=== PATIENT | male | born 1995 | race Caucasian/White ===

== ENCOUNTER 2017-06-21 16:15 | Emergency (ER) | payer MEDICAID ==
--- NOTE | 2017-06-21 16:22 | CPEKG ---
Heart Rate: 69 RR Interval: 870 P-R Interval: 164 QRSD Interval: 90 QT Interval: 396 QTC Interval: 425 P [place]: 82 QRS [place]: 75 T Wave [place]: 80 EKG Severity - NORMAL ECG - EKG Impression: SINUS RHYTHM Electronically Signed By: Sandoval Hernandez 22-Jun-2017 12:55:35
[2017-06-21 16:28] VITALS: TEMP 97.3
[2017-06-21] MEDS ORDERED: NS 500 ML IV ONE (16:28)
--- NOTE | 2017-06-21 16:34 | EDPHY ---
H & P Time Seen by Provider: 06/21/17 16:19 HPI/ROS: CHIEF COMPLAINT: Sharp chest pain HISTORY OF PRESENT ILLNESS: This is a 21-year-old male presents emergency department reporting that half an hour ago he developed a sudden onset of sharp chest discomfort, substernal. Pain was worse with DB took a deep breath took short shallow breaths. He has not had this discomfort before. He was smoking marijuana at the time. No radiation of the pain. No nausea. No diaphoresis. No lightheadedness. No palpitations. Has not had similar symptoms previously. Reports being otherwise well. Patient has no coronary artery disease risk factors; no diabetes, high blood pressure, cigarette use, cocaine use, advanced age, or family history. No risk factors for venous thromboemboli: Denies recent long trips or immobilization, cancer history, peripheral swelling, family history of clotting disorders. Denies GERD, ulcer disease, pancreatitis, alcohol use, or liver disease No fever, chills, palpitations, vomiting, diarrhea, urinary complaints, headache , lightheadedness. REVIEW OF SYSTEMS: Aside from elements discussed in the HPI, a comprehensive 10-point review of systems was reviewed and is negative. PAST MEDICAL HISTORY: Seasonal allergies. SOCIAL HISTORY: Daily marijuana user. Denies methamphetamines, cocaine, opiates. VITAL SIGNS: see nurse's notes. GENERAL: Well-developed, well-nourished, in mild discomfort. Patient rates the discomfort as 8-9 /10. HEENT: Atraumatic. Eyes: No injection or icterus. Oropharynx: No erythema , no injection, no swelling. Neck: No JVD, no bruits, supple with no adenopathy. CHEST: No crepitus. Patient indicates an area of reproducible discomfort on the left sternal border. No rash. LUNGS: Clear to auscultation bilaterally, no wheezes, rhonchi or rales. CARDIAC: Regular rate and rhythm, no murmurs, no rubs, no gallops. ABDOMEN: Soft, no epigastric tenderness. Nondistended. Normal bowel sounds. BACK: No CVA tenderness. EXTREMITIES: No trauma. No clubbing, cyanosis or edema. Range of motion is normal throughout. NEURO: Alert and oriented , grossly nonfocal. SKIN: No diaphoresis, warm and dry, no rash. Smoking Status: Never smoked Constitutional: Initial Vital Signs Temperature (C) 36.3 C 06/21/17 16:21 Heart Rate 71 06/21/17 16:21 Respiratory Rate 16 06/21/17 16:21 Blood Pressure 134/80 H 06/21/17 16:21 O2 Sat (%) 99 06/21/17 16:21 O2 Delivery Mode Room Air Allergies/Adverse Reactions: No Known Allergies Allergy (Verified 06/21/17 16:20) Home Medications: Medication Instructions Recorded NK [No Known Home Meds] 06/21/17 Medical Decision Making - Diagnostics EKG Interpretation: 12-LEAD EKG: Please see the full report in [facility]. My interpretation: Normal sinus rhythm, no ST or T-wave changes. No signs of pericarditis. Imaging Results: Imaging Impressions Chest X-Ray 06/21/17 16:28 Impression: Clear lungs. No acute process. ED Course/Re-evaluation: 21-year-old male with sharp chest pain which started after he was smoking marijuana. Chest x-ray is normal. No pneumomediastinum. No pneumothorax. Examination is reassuring. Patient does have some mild tenderness to palpation along the left sternal border. Patient received a GI cocktail with minimal change in his symptoms. He received Toradol 30 mg IV followed by Dilaudid 0.5 mg. He continues to look quite well in the emergency department. He does not appear to be in any acute discomfort. I held a long discussion with the patient as well as with his parents regarding the etiology of the patient's pain. I do not suspect this is acute coronary syndrome. He has no risk factors and does not use illicit drugs which would predispose him to acute coronary syndrome. He is not diaphoretic, short of breath, or uncomfortable appearing. I doubt the patient has pulmonary embolism, D-dimer is negative. I suspect that this may be related to either esophageal spasm, or perhaps musculoskeletal discomfort from Valsalva maneuver and marijuana use. Patient was encouraged to use ibuprofen on a regular basis, and follow up with his primary care physician for further evaluation of his symptoms were to continue. He should return to urgency department if he develops a fever, ongoing pain, lightheadedness, palpitations, dizziness, fainting, diaphoresis, other concerns. Differential Diagnosis: After history and physical examination, the differential for chest pain was considered, including but not limited to, myocardial ischemia, acute coronary syndrome, pulmonary embolus, chest wall pain, pneumomediastinum, pneumothorax, GI source, reflux, pleural inflammation and pulmonary infectious causes. - Data Points Laboratory Results: Laboratory Results 06/21/17 16:33 06/21/17 16:33 06/21/17 06/21/17 06/21/17 16:33 16:33 16:33 WBC 6.84 10^3/uL 10^3/uL (3.80-9.50) RBC 5.09 10^6/uL 10^6/uL (4.40-6.38) Hgb 15.2 g/dL g/dL (13.7-17.5) Hct 43.1 % % (40.0-51.0) MCV 84.7 fL fL (81.5-99.8) MCH 29.9 pg pg (27.9-34.1) MCHC 35.3 g/dL g/dL (32.4-36.7) RDW 12.1 % % (11.5-15.2) Plt Count 246 10^3/uL 10^3/uL (150-400) MPV 10.0 fL fL (8.7-11.7) Neut % (Auto) 44.0 % % (39.3-74.2) Lymph % (Auto) 45.9 % H % (15.0-45.0) [place] % (Auto) 7.5 % % (4.5-13.0) Eos % (Auto) 1.8 % % (0.6-7.6) Baso % (Auto) 0.7 % % (0.3-1.7) Nucleat RBC Rel Count 0.0 % % (0.0-0.2) Absolute Neuts (auto) 3.01 10^3/uL 10^3/uL (1.70-6.50) Absolute Lymphs (auto) 3.14 10^3/uL H 10^3/uL (1.00-3.00) Absolute Monos (auto) 0.51 10^3/uL 10^3/uL (0.30-0.80) Absolute Eos (auto) 0.12 10^3/uL 10^3/uL (0.03-0.40) Absolute Basos (auto) 0.05 10^3/uL 10^3/uL (0.02-0.10) Absolute Nucleated RBC 0.00 10^3/uL 10^3/uL (0-0.01) Immature Gran % 0.1 % % (0.0-1.1) Immature Gran # 0.01 10^3/uL 10^3/uL (0.00-0.10) D-Dimer < 0.27 ug/mLFEU ug/mLFEU (0.00-0.50) Sodium 144 mEq/L mEq/L (134-144) Potassium 4.0 mEq/L mEq/L (3.5-5.2) Chloride 103 mEq/L mEq/L (97-110) Carbon Dioxide 27 mEq/l mEq/l (22-31) Anion Gap 14 mEq/L mEq/L (8-16) BUN 9 mg/dL mg/dL (7-23) Creatinine 0.9 mg/dL mg/dL (0.7-1.3) Estimated GFR > 60 Glucose 96 mg/dL mg/dL (70-100) Calcium 9.8 mg/dL mg/dL (8.5-10.4) Total Bilirubin 1.4 mg/dL mg/dL (0.1-1.4) Conjugated Bilirubin 0.5 mg/dL mg/dL (0.0-0.5) Unconjugated Bilirubin 0.9 mg/dL mg/dL (0.0-1.1) AST 24 IU/L IU/L (17-59) ALT 36 IU/L IU/L (21-72) Alkaline Phosphatase 50 IU/L IU/L (38-126) Troponin I < 0.012 ng/mL ng/mL (0.000-0.034) Total Protein 8.2 g/dL g/dL (6.3-8.2) Albumin 4.9 g/dL g/dL (3.5-5.0) Lipase 81 IU/L IU/L (23-300) Medications Given: Discontinued Medications Al Hydroxide/Mg Hydroxide (Maalox Susp) 30 ml PO ONCE ONE Stop: 06/21/17 16:46 Last Admin: 06/21/17 16:59 Dose: 30 ml Hydromorphone HCl (Dilaudid) 1 mg IVP EDNOW ONE Stop: 06/21/17 17:32 Last Admin: 06/21/17 17:52 Dose: 1 mg Hyoscyamine Sulfate (Levsin, Hyomax-Sl) 0.25 mg PO ONCE ONE Stop: 06/21/17 16:46 Last Admin: 06/21/17 16:59 Dose: 0.25 mg Sodium Chloride (Ns) 500 mls @ 0 mls/hr IV EDNOW ONE; Wide Open PRN Reason: Protocol Stop: 06/21/17 16:29 Last Admin: 06/21/17 16:38 Dose: 500 mls Ketorolac Tromethamine (Toradol) 15 mg IVP EDNOW ONE Stop: 06/21/17 16:46 Last Admin: 06/21/17 16:59 Dose: 15 mg Lidocaine (Lidocaine 2% Viscous) 15 ml PO ONCE ONE Stop: 06/21/17 16:46 Last Admin: 06/21/17 16:59 Dose: 15 ml Departure - Departure Disposition: Home, Routine, Self-Care Clinical Impression: Chest wall pain, Chest pain Condition: Good Instructions: Chest Pain (ED) Additional Instructions: Your evaluation for chest pain in the emergency department has not demonstrated clear cause. I do not believe that you are having a cardiac event. Your chest x-ray is normal, no signs of pneumomediastinum, collapsed lung, heart failure, or pneumonia. Your EKG reveals normal sinus rhythm. Your chest discomfort may be related to heartburn, reflux, or esophageal spasm. It may also be related to marijuana use and Valsalva type maneuvers. I recommend you stop smoking marijuana. For your pain: I recommend Ibuprofen (Motrin, Advil) or Naproxen Sodium (Aleve) for pain and anti-inflammatory effects. You may take either one, but do not take both. Your dose is: Ibuprofen 600 mg every 6-8 hours with food. OR Naproxen Sodium (Aleve) 220 mg every 12 hours. Please follow up with your primary care physician if your discomfort is not improving or if it is getting worse. Referrals: Yoni Hsu MD [Primary Care Provider] - As per Instructions
[2017-06-21 16:42] LABS: % IMMATURE GRANULYOCYTES 0.1 % (0.0-1.1); ABSOLUTE IMMATURE GRANULOCYTES 0.01 10^3/uL (0.00-0.10); ADD DIFF? NO; ADD MORPH? NO; ADD SCAN? NO; ATYPICAL LYMPHOCYTE FLAG 10 (0-99); FRAGMENT RBC FLAG 0 (0-99); HEMATOCRIT 43.1 % (40.0-51.0); HEMOGLOBIN 15.2 g/dL (13.7-17.5); LEFT SHIFT FLG 0 (0-99); LIPEMIA HEMOLYSIS FLAG 90 (0-99); MEAN CELL HEMOGLOBIN 29.9 pg (27.9-34.1); MEAN CELL HEMOGLOBIN CONCENTR. 35.3 g/dL (32.4-36.7); MEAN CELL VOLUME 84.7 fL (81.5-99.8); PLATELET CLUMPS FLAG 0 (0-99); PLATELET COUNT 246 10^3/uL (150-400); RED BLOOD CELL COUNT 5.09 10^6/uL (4.40-6.38); RED CELL DISTRIBUTION WIDTH 12.1 % (11.5-15.2)
[2017-06-21] MEDS ORDERED: KETOROLAC 30 MG/1 ML SDV IVP ONE (16:45)
[2017-06-21] MEDS ORDERED: MAG HYDROX/AL HYDROX/SIMETH 30 ML UDCUP PO ONE (16:45)
[2017-06-21] MEDS ORDERED: LIDOCAINE 2% VISCOUS 15 ML UDCUP PO ONE (16:45)
[2017-06-21] MEDS ORDERED: HYOSCYAMINE SULFATE 0.125 MG TAB PO ONE (16:45)
[2017-06-21 16:57] LABS: ALANINE AMINOTRANSFERASE 36 IU/L (21-72); ALBUMIN 4.9 g/dL (3.5-5.0); ALKALINE PHOSPHATASE 50 IU/L (38-126); ANION GAP 14 mEq/L (8-16); ASPARTATE AMINOTRANSFERASE 24 IU/L (17-59); BILIRUBIN,TOTAL 1.4 mg/dL (0.1-1.4); BILIRUBIN-CONJUGATED 0.5 mg/dL (0.0-0.5); BILIRUBIN-UNCONJUGATED 0.9 mg/dL (0.0-1.1); CALCIUM 9.8 mg/dL (8.5-10.4); CARBON DIOXIDE 27 mEq/l (22-31); CHLORIDE 103 mEq/L (97-110); CREATININE 0.9 mg/dL (0.7-1.3); GLOMERULAR FILTRATION RATE > 60; GLUCOSE 96 mg/dL (70-100); SODIUM 144 mEq/L (134-144); TOTAL PROTEIN 8.2 g/dL (6.3-8.2)
[2017-06-21 17:08] LABS: TROPONIN I < 0.012 ng/mL (0.000-0.034)
[2017-06-21] MEDS ORDERED: HYDROmorphONE/DILAUDID 1 MG/ML INJ IVP ONE (17:31)
[2017-06-21 18:46] VITALS: BP 128/87; PULSE 59; RESP 16; O2SAT 96
== END 2017-06-21 18:44 | disposition home or self-care (01) ==
LOC: CED 16:15
DX: R07.89 Other chest pain (principal); E86.9 Volume depletion, unspecified
CPT/HCPCS: 71020-PO; 80048-PO; 80076-PO; 83690-PO; 84484-PO; 85025-PO; 85378-PO; 96374; J1170; J1885